=== PATIENT | female | born 1960 | race African-American/Black ===

== ENCOUNTER 2021-02-08 23:34 | Emergency (ER) | payer OTHER, MEDICAID ==
[~2021-02-08] VITALS: Ht 165.1 cm; Wt 81.0 kg
[~2021-02-08 23:34] MED LIST: CELE100C PO; HYDR-523 PO; NAPR220C15 PO; TIZA4TAB5 PO; TRAM50TA3 PO
[2021-02-09] MEDS ORDERED: KETOROLAC 30MG/ML VIAL IV STA (02:11)
[2021-02-09] MEDS ORDERED: METOCLOPRAMIDE HCL 10MG/2ML VIAL IV STA (02:11)
[2021-02-09] MEDS ORDERED: MAGNESIUM/ALUMINUM HYDROXIDE/SIMETHICONE 30ML UDC PO STA (02:11)
[2021-02-09 02:54] LABS: CHLORIDE 108 mEq/L (98-107)
[2021-02-09 02:55] LABS: HEMATOCRIT. 36.1 % (36.0-48.0); HEMOGLOBIN. 11.9 g/dL (12.0-16.0); MEAN CORPUSCULAR HEMOGLOBIN 28.5 pg (28.0-32.0); MEAN CORPUSCULAR VOLUME 86.6 fL (81.0-99.0); MEAN PLATELET VOLUME 10.3 fl (7.4-10.4); PLATELET 189 x1000/uL (130-400); RED BLOOD CELL COUNT 4.16 mill/uL (4.2-5.4); RED CELL DISTRIBUTION WIDTH 15.1 % (11.6-14.6)
[2021-02-09 04:50] LABS: PLATELET ESTIMATE NORMAL
[2021-02-09] MEDS ORDERED: CEFTRIAXONE 1 G PREMIX 50 ML IV ONE (06:00)
[2021-02-09] MEDS ORDERED: SODIUM CHLORIDE 0.9% 1,000 ML IV ONE (06:00)
[2021-02-09] MEDS ORDERED: MORPHINE SULFATE 4 MG/ML CPJ (NOT FOR IM USE) IV ONE (08:45)
[2021-02-09 09:58] VITALS: BP 106/58
== END 2021-02-09 10:27 | disposition short-term general hospital (02) ==
LOC: ER 23:34
DX: R10.13 Epigastric pain (principal); R11.2 Nausea with vomiting, unspecified; K57.90 Diverticulosis of intestine, part unspecified, without perforation or abscess without bleeding; K21.9 Gastro-esophageal reflux disease without esophagitis; E78.00 Pure hypercholesterolemia, unspecified; D72.829 Elevated white blood cell count, unspecified
CPT/HCPCS: 36415; 71045; 74176; 80053; 83605; 83690; 84145; 85025; 93005; 96365; 96375; 99285; J0696; J1885; J2270; J2765; J7030

== ENCOUNTER 2021-04-26 02:15 | Emergency (ER) | payer OTHER, MEDICAID ==
[~2021-04-26] VITALS: Ht 165.1 cm; Wt 77.0 kg
[2021-04-26] MEDS ORDERED: MORPHINE SULFATE 4 MG/ML CPJ (NOT FOR IM USE) IV ONE ×2 (04:45→06:45)
[2021-04-26] MEDS ORDERED: ONDANSETRON HCL 4MG/2ML INJ IV ONE (04:45)
[2021-04-26 04:46] LABS: HEMOGLOBIN. 11.7 g/dL (12.0-16.0); MEAN CORPUSCULAR HEMOGLOBIN 28.3 pg (28.0-32.0); MEAN CORPUSCULAR VOLUME 86.8 fL (81.0-99.0); MEAN PLATELET VOLUME 9.5 fl (7.4-10.4); PLATELET 244 x1000/uL (130-400); RED BLOOD CELL COUNT 4.15 mill/uL (4.2-5.4); RED CELL DISTRIBUTION WIDTH 15.3 % (11.6-14.6)
[2021-04-26 04:52] LABS: CHLORIDE 107 mEq/L (98-107)
[2021-04-26 06:25] LABS: PLATELET ESTIMATE NORMAL
[2021-04-26 07:15] LABS: CLARITY URINE CLEAR (CLEAR); COLOR URINE YELLOW (YELLOW); KETONES URINE NEGATIVE (NEGATIVE); LEUKOCYTE ESTERASE URINE NEGATIVE (NEGATIVE); NITRITE URINE NEGATIVE (NEGATIVE); OCCULT BLOOD URINE 2+ (NEGATIVE); PROTEIN URINE NEGATIVE (NEGATIVE); SPECIFIC GRAVITY URINE 1.013 (1.005-1.030); UROBILINOGEN URINE 0.2 E.U./dL (0.2-1.0)
[2021-04-26] MEDS ORDERED: CIPR-263 MT (07:35)
[2021-04-26] MEDS ORDERED: METR500T MT (07:36)
[2021-04-26] MEDS ORDERED: IOHEXOL-300 100 ML BOTTLE ONE (07:47)
[2021-04-26 08:04] VITALS: BP 143/98
== END 2021-04-26 08:37 | disposition home or self-care (01) ==
LOC: ER 02:15
DX: K57.92 Diverticulitis of intestine, part unspecified, without perforation or abscess without bleeding (principal); K21.9 Gastro-esophageal reflux disease without esophagitis; Z90.710 Acquired absence of both cervix and uterus; Z79.899 Other long term (current) drug therapy
CPT/HCPCS: 36415; 74177; 80053; 81003; 83690; 85025; 96374; 96375; 96376; 99285; J2270; J2405; Q9967